=== PATIENT | female | born 1945 | race Caucasian/White ===

== ENCOUNTER 2018-05-24 21:31 | Observation (INO) | payer MEDICARE, OTHER ==
--- NOTE | 2018-05-24 21:50 | EDM.PDOC ---
ED HPI GENERAL MEDICAL PROBLEM - General Chief Complaint: Neuro Symptoms/Deficits Stated Complaint: STROKE SYSTEMS Time Seen by Provider: 05/24/18 21:50 Source of Information: Reports: Patient - History of Present Illness INITIAL COMMENTS - FREE TEXT/NARRATIVE: HISTORY AND PHYSICAL: History of present illness: [Patient presents with left facial weakness via EMS At between 7 and 9 PM tonight patient hasn't had some left facial weakness which is now resolved, in terms lasted for 30-60 minutes per on EMS arrival they did verify the symptoms however there was full resolution by the time she arrives in the ER She speaks clearly full sentences no distress no fever nausea vomiting diarrhea constipation chest pain shortness breath headache dizziness or palpitation no bowel or urine symptoms ] Review of systems: As per history of present illness and below otherwise all systems reviewed and negative. Past medical history: As per history of present illness and as reviewed below otherwise noncontributory. Surgical history: As per history of present illness and as reviewed below otherwise noncontributory. Social history: No reported history of drug or alcohol abuse. Family history: As per history of present illness and as reviewed below otherwise noncontributory. Physical exam: HEENT: Atraumatic, normocephalic, pupils reactive, negative for conjunctival pallor or scleral icterus, mucous membranes moist, throat clear, neck supple, nontender, trachea midline. Lungs: Clear to auscultation, breath sounds equal bilaterally, chest nontender. Heart: S1S2, regular, negative for clicks, rubs, or JVD. Abdomen: Soft, nondistended, nontender. Negative for masses or hepatosplenomegaly. Negative for costovertebral tenderness. Pelvis: Stable nontender. Genitourinary: Deferred. Rectal: Deferred. Extremities: Atraumatic, negative for cords or calf pain. Neurovascular unremarkable. Neuro: Awake, alert, oriented. Cranial nerves II through XII unremarkable. Cerebellum unremarkable. Motor and sensory unremarkable throughout. Exam nonfocal. Diagnostics: [CBC CMP troponin EKG Chest 1 view ] head CT no contrast Therapeutics: [ 324 mg chewable aspirin ] Impression: TIA Chronic history of baseline] Definitive disposition and diagnosis as appropriate pending reevaluation and review of above. - Related Data Allergies Allergy/AdvReac Type Severity Reaction Status Date / Time No Known Allergies Allergy Verified 05/24/18 21:40 Home Meds: Home Meds Atenolol 50 mg PO BID 05/24/18 [History] Levothyroxine [Sythroid] 100 mcg PO DAILY 05/24/18 [History] Pravastatin [Pravachol] 40 mg PO DAILY 05/24/18 [History] Ramipril [Altace] 5 mg PO BID 05/24/18 [History] amLODIPine Besylate [Norvasc] 5 mg PO DAILY 05/24/18 [History] ED ROS GENERAL - Review of Systems Review Of Systems: See Below ED EXAM, GENERAL - Physical Exam Exam: See Below Course - Vital Signs Last Recorded V/S: Last Vital Signs Temp 97.8 F 05/24/18 21:32 Pulse 96 05/24/18 21:32 Resp 22 H 05/24/18 21:32 BP 134/77 05/24/18 21:32 Pulse Ox 95 05/24/18 21:32 - Orders/Labs/Meds Orders: Active Orders 24 hr Category Date Time Status EKG Documentation Completion [RC] STAT Care 05/24/18 21:48 Active Chest 1V Frontal [CR] Stat Exams 05/24/18 21:48 Taken Head wo Cont [CT] Stat Exams 05/24/18 21:48 Taken CULTURE URINE [RM] Stat Lab 05/24/18 21:55 Received UA W/MICROSCOPIC [URIN] Stat Lab 05/24/18 21:55 Ordered Sodium Chloride 0.9% [Normal Saline] 1,000 ml Med 05/24/18 22:00 Active IV STAT Medication Orders Sodium Chloride (Normal Saline) 1,000 mls @ 125 mls/hr IV STAT MELISSA Last Admin: 05/24/18 22:09 Dose: 125 mls/hr Labs: Laboratory Tests 05/24/18 05/24/18 05/24/18 Range/Units 21:55 22:09 22:09 WBC 10.62 (4.0-11.0) K/uL RBC 4.70 (4.30-5.90) M/uL Hgb 14.7 (12.0-16.0) g/dL Hct 43.5 (36.0-46.0) % MCV 92.6 (80.0-98.0) fL MCH 31.3 (27.0-32.0) pg MCHC 33.8 (31.0-37.0) g/dL RDW Std Deviation 46.5 (28.0-62.0) fl RDW Coeff of Javed 14 (11.0-15.0) % Plt Count 205 (150-400) K/uL MPV 10.50 (7.40-12.00) fL Neut % (Auto) 78.0 (48.0-80.0) % Lymph % (Auto) 13.4 L (16.0-40.0) % [place] % (Auto) 5.3 (0.0-15.0) % Eos % (Auto) 2.7 (0.0-7.0) % Baso % (Auto) 0.6 (0.0-1.5) % Neut # (Auto) 8.3 H (1.4-5.7) K/uL Lymph # (Auto) 1.4 (0.6-2.4) K/uL [place] # (Auto) 0.6 (0.0-0.8) K/uL Eos # (Auto) 0.3 (0.0-0.7) K/uL Baso # (Auto) 0.1 (0.0-0.1) K/uL Nucleated RBC % 0.0 /100WBC Nucleated RBCs # 0 K/uL INR 1.03 Sodium (136-145) mmol/L Potassium (3.5-5.1) mmol/L Chloride (98-107) mmol/L Carbon Dioxide (21.0-32.0) mmol/L BUN (7.0-18.0) mg/dL Creatinine (0.6-1.0) mg/dL Est Cr Clr Drug Dosing mL/min Estimated GFR (MDRD) ml/min Glucose (74-106) mg/dL Calcium (8.5-10.1) mg/dL Total Bilirubin (0.2-1.0) mg/dL AST (15-37) IU/L ALT (14-63) IU/L Alkaline Phosphatase (46-116) U/L Troponin I (0.000-0.056) ng/mL Total Protein (6.4-8.2) g/dL Albumin (3.4-5.0) g/dL Globulin (2.0-3.5) g/dL Albumin/Globulin Ratio (1.3-2.8) Urine Color YELLOW Urine Appearance SLT CLOUDY Urine pH 6.0 (5.0-8.0) Ur Specific [place] 1.025 (1.001-1.035) Urine Protein NEGATIVE (NEGATIVE) mg/dL Urine Glucose (UA) NEGATIVE (NEGATIVE) mg/dL Urine Ketones TRACE H (NEGATIVE) mg/dL Urine Occult Blood TRACE-INTACT (NEGATIVE) Urine Nitrite NEGATIVE (NEGATIVE) Urine Bilirubin NEGATIVE (NEGATIVE) Urine Urobilinogen 0.2 (<2.0) EU/dL Ur Leukocyte Esterase SMALL (NEGATIVE) Urine RBC 0-3 (0-2/HPF) Urine WBC 12-15 (0-5/HPF) Ur Epithelial Cells FEW (NONE-FEW) Urine Bacteria 1+ H (NEGATIVE) 05/24/18 Range/Units 22:09 WBC (4.0-11.0) K/uL RBC (4.30-5.90) M/uL Hgb (12.0-16.0) g/dL Hct (36.0-46.0) % MCV (80.0-98.0) fL MCH (27.0-32.0) pg MCHC (31.0-37.0) g/dL RDW Std Deviation (28.0-62.0) fl RDW Coeff of Javed (11.0-15.0) % Plt Count (150-400) K/uL MPV (7.40-12.00) fL Neut % (Auto) (48.0-80.0) % Lymph % (Auto) (16.0-40.0) % [place] % (Auto) (0.0-15.0) % Eos % (Auto) (0.0-7.0) % Baso % (Auto) (0.0-1.5) % Neut # (Auto) (1.4-5.7) K/uL Lymph # (Auto) (0.6-2.4) K/uL [place] # (Auto) (0.0-0.8) K/uL Eos # (Auto) (0.0-0.7) K/uL Baso # (Auto) (0.0-0.1) K/uL Nucleated RBC % /100WBC Nucleated RBCs # K/uL INR Sodium 139 (136-145) mmol/L Potassium 4.2 (3.5-5.1) mmol/L Chloride 105 (98-107) mmol/L Carbon Dioxide 23.4 (21.0-32.0) mmol/L BUN 22 H (7.0-18.0) mg/dL Creatinine 1.0 (0.6-1.0) mg/dL Est Cr Clr Drug Dosing 42.62 mL/min Estimated GFR (MDRD) 54.2 ml/min Glucose 139 H (74-106) mg/dL Calcium 9.0 (8.5-10.1) mg/dL Total Bilirubin 0.7 (0.2-1.0) mg/dL AST 18 (15-37) IU/L ALT 23 (14-63) IU/L Alkaline Phosphatase 93 (46-116) U/L Troponin I < 0.050 (0.000-0.056) ng/mL Total Protein 7.7 (6.4-8.2) g/dL Albumin 3.8 (3.4-5.0) g/dL Globulin 3.9 H (2.0-3.5) g/dL Albumin/Globulin Ratio 1.0 L (1.3-2.8) Urine Color Urine Appearance Urine pH (5.0-8.0) Ur Specific [place] (1.001-1.035) Urine Protein (NEGATIVE) mg/dL Urine Glucose (UA) (NEGATIVE) mg/dL Urine Ketones (NEGATIVE) mg/dL Urine Occult Blood (NEGATIVE) Urine Nitrite (NEGATIVE) Urine Bilirubin (NEGATIVE) Urine Urobilinogen (<2.0) EU/dL Ur Leukocyte Esterase (NEGATIVE) Urine RBC (0-2/HPF) Urine WBC (0-5/HPF) Ur Epithelial Cells (NONE-FEW) Urine Bacteria (NEGATIVE) Meds: Medications Generic Name Dose Route Start Last Admin Trade Name Freq PRN Reason Stop Dose Admin Sodium Chloride 1,000 mls @ 125 mls/hr 05/24/18 22:00 05/24/18 22:09 Normal Saline IV 125 mls/hr STAT MELISSA Administration Discontinued Medications Generic Name Dose Route Start Last Admin Trade Name Freq PRN Reason Stop Dose Admin Aspirin 324 mg 05/24/18 22:50 Aspirin PO 05/24/18 22:51 ONETIME ONE Departure - Departure Time of Disposition: 23:22 Disposition: Refer to Observation Condition: Fair Clinical Impression: TIA (transient ischemic attack) - Discharge Information Forms: ED Department Discharge - My Orders Last 24 Hours: My Active Orders 05/24/18 21:48 EKG Documentation Completion [RC] STAT Chest 1V Frontal [CR] Stat Head wo Cont [CT] Stat 05/24/18 21:55 CULTURE URINE [RM] Stat UA W/MICROSCOPIC [URIN] Stat 05/24/18 22:00 Sodium Chloride 0.9% [Normal Saline] 1,000 ml IV STAT - Assessment/Plan Last 24 Hours: My Active Orders 05/24/18 21:48 EKG Documentation Completion [RC] STAT Chest 1V Frontal [CR] Stat Head wo Cont [CT] Stat 05/24/18 21:55 CULTURE URINE [RM] Stat UA W/MICROSCOPIC [URIN] Stat 05/24/18 22:00 Sodium Chloride 0.9% [Normal Saline] 1,000 ml IV STAT
[2018-05-24] MEDS ORDERED: Sodium Chloride 0.9% 1,000 ML IV SCH (22:00)
[2018-05-24 22:44] LABS: CHLORIDE,CL 105 mmol/L (98-107); SODIUM,NA 139 mmol/L (136-145)
[2018-05-24] MEDS ORDERED: Aspirin 81 MG Tab.Chew PO ONE (22:50)
[2018-05-25] MEDS: Pravastatin 40 MG Tab PO SCH ×2 (00:52→20:07)
[2018-05-25] MEDS: Levothyroxine 100 MCG Tab PO SCH (06:36)
--- NOTE | 2018-05-25 08:26 | PCM.HP ---
H&P History of Present Illness - General Date of Service: 05/25/18 Admit Problem/Dx: Admission Diagnosis/Problem Admission Diagnosis/Problem TIA, Transient ischemic attack - History of Present Illness Initial Comments - Free Text/Narative: The patient is a 72-year-old female who noticed left-sided facial weakness and inability to speak at home that lasted 30-60 minutes. She was brought into the ER by the time she arrived, her symptoms had resolved. She denies any additional weakness in the extremities, any vision changes, any headache. She reports she's never had any symptoms like this before. She does have a history of hyperlipidemia and hypertension. Workup in the ER included, CBC, CMP, troponin that was negative. They also did an CXR that showed cardiomegaly and atelectasis in the LLL and a CT head that showed no acute infarct, no intracranial hemorrhage, or mass effect. An EKG did show that she was in A. fib. She remained in A. fib all night on telemetry. When speaking to the patient, she did not know she had A.Fib. But she notes that her primary care doctor did tell her she skips a beat occasionally. She is not currently on anticoagulation. She has no history of GI bleed or falls, if she were to be started on anticoagulation. Currently, she is not having any neurological deficits and feels better. She denies any chest pain, shortness of breath, abdominal pain. She's been eating, drinking and going to the bathroom without difficulty. - Related Data Allergies/Adverse Reactions: Allergies Allergy/AdvReac Type Severity Reaction Status Date / Time No Known Allergies Allergy Verified 05/24/18 21:40 Home Medications: Home Meds Atenolol 50 mg PO BID 05/24/18 [History] Levothyroxine [Sythroid] 100 mcg PO ACBREAKFAST 05/24/18 [History] Pravastatin [Pravachol] 40 mg PO BEDTIME 05/24/18 [History] Ramipril [Altace] 5 mg PO BID 05/24/18 [History] amLODIPine Besylate [Norvasc] 5 mg PO DAILY 05/24/18 [History] Past Medical History HEENT History: Reports: Other (See Below) Other HEENT History: wears glasses Cardiovascular History: Reports: Afib, High Cholesterol, Hypertension Respiratory History: Reports: None Gastrointestinal History: Reports: Bowel Obstruction Genitourinary History: Reports: None Other Musculoskeletal History: broken pelvis Neurological History: Reports: None Psychiatric History: Reports: None Endocrine/Metabolic History: Reports: Hypothyroidism Oncologic (Cancer) History: Reports: Breast - Infectious Disease History Infectious Disease History: Reports: Chicken Pox, Mumps - Past Surgical History HEENT Surgical History: Reports: None Cardiovascular Surgical History: Reports: None Female Surgical History: Reports: Hysterectomy, Other (See Below) Other Female Surgeries/Procedures: Bilateral Mastectomy Endocrine Surgical History: Reports: None Musculoskeletal Surgical History: Reports: Other (See Below) Other Musculoskeletal Surgeries/Procedures:: left arm Oncologic Surgical History: Reports: Mastectomy Social & Family History - Family History Family Medical History: Noncontributory - Tobacco Use Smoking Status *Q: Never Smoker Second Hand Smoke Exposure: Yes - Caffeine Use Caffeine Use: Reports: Soda - Recreational Drug Use Recreational Drug Use: No H&P Review of Systems - Review of Systems: Review Of Systems: See Below General: Reports: No Symptoms HEENT: Reports: No Symptoms Pulmonary: Reports: No Symptoms Cardiovascular: Reports: No Symptoms Gastrointestinal: Reports: No Symptoms Genitourinary: Reports: No Symptoms Musculoskeletal: Reports: No Symptoms Skin: Reports: No Symptoms Psychiatric: Reports: No Symptoms Neurological: Reports: No Symptoms Hematologic/Lymphatic: Reports: No Symptoms Immunologic: Reports: No Symptoms Exam - Exam Exam: See Below - Vital Signs Vital Signs: Last Vital Signs Temp 97.5 F 05/25/18 08:00 Pulse 93 05/25/18 08:00 Resp 18 05/25/18 08:00 BP 158/78 H 05/25/18 08:00 Pulse Ox 93 L 05/25/18 08:00 Weight: 95.7 kg - Exam General: Alert, Oriented, Cooperative HEENT: EOMI, Mucosa Moist & [place], Posterior Pharynx Clear, Pupils Equal, Pupils Reactive Neck: Supple Lungs: Clear to Auscultation, Normal Respiratory Effort Cardiovascular: Irregular Rhythm (A.Fib) GI/Abdominal Exam: Normal Bowel Sounds, Soft, Non-Tender, No Distention Skin: Warm, Dry Neurological: Strength Equal Bilateral, Normal Speech, Sensation Intact Neuro Extensive - Mental Status: Alert, Oriented x3, Normal Mood/Affect, Normal Cognition, Memory Intact Neuro Extensive - Motor, Sensory, Reflexes: CN II-XII Intact. No: Tongue Deviation (L), Tongue Deviation (R), Dysarthria Psychiatric: Alert, Normal Affect, Normal Mood - Patient Data Lab Results Last 24 hrs: Laboratory Results - last 24 hr 05/24/18 05/24/18 05/24/18 Range/Units 21:55 22:09 22:09 WBC 10.62 (4.0-11.0) K/uL RBC 4.70 (4.30-5.90) M/uL Hgb 14.7 (12.0-16.0) g/dL Hct 43.5 (36.0-46.0) % MCV 92.6 (80.0-98.0) fL MCH 31.3 (27.0-32.0) pg MCHC 33.8 (31.0-37.0) g/dL RDW Std Deviation 46.5 (28.0-62.0) fl RDW Coeff of Javed 14 (11.0-15.0) % Plt Count 205 (150-400) K/uL MPV 10.50 (7.40-12.00) fL Neut % (Auto) 78.0 (48.0-80.0) % Lymph % (Auto) 13.4 L (16.0-40.0) % [place] % (Auto) 5.3 (0.0-15.0) % Eos % (Auto) 2.7 (0.0-7.0) % Baso % (Auto) 0.6 (0.0-1.5) % Neut # (Auto) 8.3 H (1.4-5.7) K/uL Lymph # (Auto) 1.4 (0.6-2.4) K/uL [place] # (Auto) 0.6 (0.0-0.8) K/uL Eos # (Auto) 0.3 (0.0-0.7) K/uL Baso # (Auto) 0.1 (0.0-0.1) K/uL Nucleated RBC % 0.0 /100WBC Nucleated RBCs # 0 K/uL INR 1.03 Sodium (136-145) mmol/L Potassium (3.5-5.1) mmol/L Chloride (98-107) mmol/L Carbon Dioxide (21.0-32.0) mmol/L BUN (7.0-18.0) mg/dL Creatinine (0.6-1.0) mg/dL Est Cr Clr Drug Dosing mL/min Estimated GFR (MDRD) ml/min Glucose (74-106) mg/dL Calcium (8.5-10.1) mg/dL Total Bilirubin (0.2-1.0) mg/dL AST (15-37) IU/L ALT (14-63) IU/L Alkaline Phosphatase (46-116) U/L Troponin I (0.000-0.056) ng/mL Total Protein (6.4-8.2) g/dL Albumin (3.4-5.0) g/dL Globulin (2.0-3.5) g/dL Albumin/Globulin Ratio (1.3-2.8) Triglycerides (0-200) mg/dL Cholesterol (50-200) mg/dL LDL Cholesterol, Calc (60-180) mg/dL VLDL Cholesterol (5-55) mg/dL HDL Cholesterol (40-60) mg/dL Cholesterol/HDL Ratio (3.3-6.0) Urine Color YELLOW Urine Appearance SLT CLOUDY Urine pH 6.0 (5.0-8.0) Ur Specific [place] 1.025 (1.001-1.035) Urine Protein NEGATIVE (NEGATIVE) mg/dL Urine Glucose (UA) NEGATIVE (NEGATIVE) mg/dL Urine Ketones TRACE H (NEGATIVE) mg/dL Urine Occult Blood TRACE-INTACT (NEGATIVE) Urine Nitrite NEGATIVE (NEGATIVE) Urine Bilirubin NEGATIVE (NEGATIVE) Urine Urobilinogen 0.2 (<2.0) EU/dL Ur Leukocyte Esterase SMALL (NEGATIVE) Urine RBC 0-3 (0-2/HPF) Urine WBC 12-15 (0-5/HPF) Ur Epithelial Cells FEW (NONE-FEW) Urine Bacteria 1+ H (NEGATIVE) 05/24/18 05/25/18 Range/Units 22:09 05:49 WBC (4.0-11.0) K/uL RBC (4.30-5.90) M/uL Hgb (12.0-16.0) g/dL Hct (36.0-46.0) % MCV (80.0-98.0) fL MCH (27.0-32.0) pg MCHC (31.0-37.0) g/dL RDW Std Deviation (28.0-62.0) fl RDW Coeff of Javed (11.0-15.0) % Plt Count (150-400) K/uL MPV (7.40-12.00) fL Neut % (Auto) (48.0-80.0) % Lymph % (Auto) (16.0-40.0) % [place] % (Auto) (0.0-15.0) % Eos % (Auto) (0.0-7.0) % Baso % (Auto) (0.0-1.5) % Neut # (Auto) (1.4-5.7) K/uL Lymph # (Auto) (0.6-2.4) K/uL [place] # (Auto) (0.0-0.8) K/uL Eos # (Auto) (0.0-0.7) K/uL Baso # (Auto) (0.0-0.1) K/uL Nucleated RBC % /100WBC Nucleated RBCs # K/uL INR Sodium 139 (136-145) mmol/L Potassium 4.2 (3.5-5.1) mmol/L Chloride 105 (98-107) mmol/L Carbon Dioxide 23.4 (21.0-32.0) mmol/L BUN 22 H (7.0-18.0) mg/dL Creatinine 1.0 (0.6-1.0) mg/dL Est Cr Clr Drug Dosing 42.62 mL/min Estimated GFR (MDRD) 54.2 ml/min Glucose 139 H (74-106) mg/dL Calcium 9.0 (8.5-10.1) mg/dL Total Bilirubin 0.7 (0.2-1.0) mg/dL AST 18 (15-37) IU/L ALT 23 (14-63) IU/L Alkaline Phosphatase 93 (46-116) U/L Troponin I < 0.050 (0.000-0.056) ng/mL Total Protein 7.7 (6.4-8.2) g/dL Albumin 3.8 (3.4-5.0) g/dL Globulin 3.9 H (2.0-3.5) g/dL Albumin/Globulin Ratio 1.0 L (1.3-2.8) Triglycerides 85 (0-200) mg/dL Cholesterol 152 (50-200) mg/dL LDL Cholesterol, Calc 74 (60-180) mg/dL VLDL Cholesterol 17 (5-55) mg/dL HDL Cholesterol 61 H (40-60) mg/dL Cholesterol/HDL Ratio 2.5 L (3.3-6.0) Urine Color Urine Appearance Urine pH (5.0-8.0) Ur Specific [place] (1.001-1.035) Urine Protein (NEGATIVE) mg/dL Urine Glucose (UA) (NEGATIVE) mg/dL Urine Ketones (NEGATIVE) mg/dL Urine Occult Blood (NEGATIVE) Urine Nitrite (NEGATIVE) Urine Bilirubin (NEGATIVE) Urine Urobilinogen (<2.0) EU/dL Ur Leukocyte Esterase (NEGATIVE) Urine RBC (0-2/HPF) Urine WBC (0-5/HPF) Ur Epithelial Cells (NONE-FEW) Urine Bacteria (NEGATIVE) Result Diagrams: 05/24/18 22:09 05/24/18 22:09 Problem List Initiated/Reviewed/Updated: Yes Orders Last 24hrs: Active Orders 24 hr Category Date Time Status Admission Status [Patient Status] [ADT] Stat ADT 05/24/18 23:23 Active EKG Documentation Completion [RC] STAT Care 05/24/18 21:48 Active Telemetry Monitoring [Cardiac Monitoring] [RC] Q8H Care 05/25/18 00:01 Active Regular Diet [DIET] Diet 05/25/18 Breakfast Active Chest 1V Frontal [CR] Stat Exams 05/24/18 21:48 Taken Head wo Cont [CT] Stat Exams 05/24/18 21:48 Taken CULTURE URINE [RM] Stat Lab 05/24/18 21:55 Ordered UA W/MICROSCOPIC [URIN] Stat Lab 05/24/18 21:55 Ordered Atenolol [Tenormin] Med 05/25/18 09:00 Active 50 mg PO BID Levothyroxine [Synthroid] Med 05/25/18 07:30 Active 100 mcg PO ACBREAKFAST Pravastatin [Pravachol] Med 05/25/18 00:17 Active 40 mg PO BEDTIME Ramipril Med 05/25/18 09:00 Ordered 5 mg PO BID amLODIPine [Norvasc] Med 05/25/18 09:00 Active 5 mg PO DAILY Medication Orders Amlodipine Besylate (Norvasc) 5 mg PO DAILY MELISSA Atenolol (Tenormin) 50 mg PO BID MELISSA Levothyroxine Sodium (Synthroid) 100 mcg PO ACBREAKFAST COUNT INCLUDES THE [facility] Last Admin: 05/25/18 06:36 Dose: 100 mcg Non-Formulary Medication (Ramipril) 5 mg PO BID COUNT INCLUDES THE [facility] Pravastatin Sodium (Pravachol) 40 mg PO BEDTIME COUNT INCLUDES THE [facility] Last Admin: 05/25/18 00:52 Dose: 40 mg Assessment/Plan Comment:: 1. Admit for observation 2. Code Status- Full 3. Vitals Per routine 4. I/Os per routine 5. Cardiac diet 6. Left sided facial weakness likely secondary to TIA- resolved -Plan- CT was negative and symptoms had resolved, continue to monitor for neurological deficits. If no further issues, discharge in morning. 7. Afib- Plan- Rate controlled on home medications, not anticoagulated. Patient denies any history of GI bleed or falls. Risks/Benefits discussed with patient and family about anticoagulation. Risks/Benefits discussed between warfarin and Eliquis. Patient is agreeable to start anticoagulation with Eliquis. Patient needs an echocardiogram done but that will need to be as an outpatient because service is not available over the weekend. 8. PMH of HTN, Hyperlipidemia- continue home meds.
[2018-05-25] MEDS ORDERED: Enoxaparin 40 MG/0.4 ML Syringe SUBCUT SCH (08:45)
[2018-05-25] MEDS: amLODIPine 5 MG Tab PO SCH (08:59)
[2018-05-25] MEDS: Atenolol 50 MG Tab PO SCH ×3 (08:59→20:10)
[2018-05-25] MEDS ORDERED: Apixaban 5 MG Tab PO SCH (10:30)
[2018-05-25] MEDS: Apixaban 5 MG Tab PO SCH (20:07)
[2018-05-26 06:38] LABS: CHLORIDE,CL 106 mmol/L (98-107); SODIUM,NA 140 mmol/L (136-145)
[2018-05-26] MEDS: Levothyroxine 100 MCG Tab PO SCH (07:01)
[2018-05-26] MEDS: Apixaban 5 MG Tab PO SCH (08:38)
[2018-05-26] MEDS: Atenolol 50 MG Tab PO SCH (08:39)
[2018-05-26] MEDS: amLODIPine 5 MG Tab PO SCH (08:39)
--- NOTE | 2018-05-26 12:36 | PCM.DCSUM1 ---
Discharge Summary - Hospital Course HPI Initial Comments: Discharge Summary Date of admission: 05/25/18 Date of discharge: 05/26/18 Admitting diagnosis: #1. Left-sided facial weakness ith symptoms resolved likely secondary to TIA #2. new onset atrial fibrillation #3. Past medical history of hypertension, hyperlipidemia #4. #5. Discharge diagnoses: #1. TIA #2. new onset atririllation on anticoagulation #3. Past medical history of hypertension and hyperlipidemia #4. #5. Consultations: None Procedures: None Hospitalization course: Patient was stable throughout her stay, she did not have any further neurological deficits throughout her entire hospital stay. Patient was started on Eliquis or her new onset atrial fibrillation.On physical examination patient does appear to have a systolic murmur likely aortic stenosis , atient is going to require an outpatient echocardiogram done by her PCP for proper evaluation of her new onset atrial fibrillation along with her aortic stenosis. Patient will also follow-up with neurology in an outpatient setting. Patient has been stable throughout her stay and would like to be discharged home. patient was sent home on continuation of her home medication, long with maximization of her statins to 80 mg daily for anti-inflammatory effect due to her TIA symptoms, as well as anticoagulation with Eliquis. Disposition on discharge:Home Condition on discharge: Stable - Discharge Data Discharge Date: 05/26/18 Discharge Disposition: Home, Self-Care 01 Condition: Good - Discharge Diagnosis/Problem(s) (1) TIA (transient ischemic attack) SNOMED Code(s): 131819300 ICD Code: G45.9 - TRANSIENT CEREBRAL ISCHEMIC ATTACK, UNSPECIFIED Status: Acute Current Visit: Yes (2) A-fib SNOMED Code(s): 65839661 ICD Code: I48.91 - UNSPECIFIED ATRIAL FIBRILLATION Status: Acute Current Visit: Yes - Patient Instructions Diet: Regular Diet as Tolerated Activity: As Tolerated Driving: Do Not Drive Showering/Bathing: May Shower Notify Provider of: Fever, Increased Pain, Drainage, Nausea and/or Vomiting - Discharge Plan Prescriptions/Med Rec: Apixaban [Eliquis] 5 mg PO BID 30 Days #60 tablet Pravastatin [Pravachol] 40 mg PO BID 30 Days #60 tablet Home Medications: Home Meds Atenolol 50 mg PO BID 05/24/18 [History] Levothyroxine [Synthroid] 100 mcg PO ACBREAKFAST 05/24/18 [History] Ramipril [Altace] 5 mg PO BID 05/24/18 [History] amLODIPine Besylate [Norvasc] 5 mg PO DAILY 05/24/18 [History] Apixaban [Eliquis] 5 mg PO BID 30 Days #60 tablet 05/26/18 [Rx] Pravastatin [Pravachol] 40 mg PO BID 30 Days #60 tablet 05/26/18 [Rx] Patient Handouts: Transient Ischemic Attack, [id number] Referrals: Gela Whittaker NP [Ordering Only Provider] - Zulema Dutta MD [Physician] - (Please call on Sunday for follow-up appointment in 1 week.) - Discharge Summary/Plan Comment DC Time >30 min.: No - Patient Data Vitals - Most Recent: Last Vital Signs Temp 37.1 C 05/26/18 08:00 Pulse 96 05/26/18 08:00 Resp 16 05/26/18 08:00 BP 136/78 05/26/18 08:00 Pulse Ox 94 L 05/26/18 08:00 Weight - Most Recent: 95.7 kg I&O - Last 24 hours: Intake & Output 05/25/18 05/26/18 05/26/18 22:59 06:59 14:59 Intake Total 520 340 Output Total 980 600 Balance -460 -260 Lab Results - Last 24 hrs: Laboratory Results - last 24 hr 05/26/18 05/26/18 Range/Units 06:11 06:11 WBC 10.31 (4.0-11.0) K/uL RBC 4.58 (4.30-5.90) M/uL Hgb 13.8 (12.0-16.0) g/dL Hct 42.1 (36.0-46.0) % MCV 91.9 (80.0-98.0) fL MCH 30.1 (27.0-32.0) pg MCHC 32.8 (31.0-37.0) g/dL RDW Std Deviation 45.6 (28.0-62.0) fl RDW Coeff of Javed 14 (11.0-15.0) % Plt Count 181 (150-400) K/uL MPV 10.90 (7.40-12.00) fL Neut % (Auto) 76.1 (48.0-80.0) % Lymph % (Auto) 14.2 L (16.0-40.0) % Mckinley % (Auto) 7.9 (0.0-15.0) % Eos % (Auto) 1.5 (0.0-7.0) % Baso % (Auto) 0.3 (0.0-1.5) % Neut # (Auto) 7.9 H (1.4-5.7) K/uL Lymph # (Auto) 1.5 (0.6-2.4) K/uL Mckinley # (Auto) 0.8 (0.0-0.8) K/uL Eos # (Auto) 0.2 (0.0-0.7) K/uL Baso # (Auto) 0.0 (0.0-0.1) K/uL Nucleated RBC % 0.0 /100WBC Nucleated RBCs # 0 K/uL Sodium 140 (136-145) mmol/L Potassium 3.8 (3.5-5.1) mmol/L Chloride 106 (98-107) mmol/L Carbon Dioxide 22.9 (21.0-32.0) mmol/L BUN 12 (7.0-18.0) mg/dL Creatinine 0.9 (0.6-1.0) mg/dL Est Cr Clr Drug Dosing 49.35 mL/min Estimated GFR (MDRD) > 60.0 ml/min Glucose 106 (74-106) mg/dL Calcium 9.2 (8.5-10.1) mg/dL MARINA Results - Last 24 hrs: Microbiology 05/24/18 21:55 Urine Culture - Final Urine, Clean Catch MIXED LONG >100,000 CFU/ML Med Orders - Current: Current Medications Amlodipine Besylate (Norvasc) 5 mg PO DAILY [facility] Last Admin: 05/26/18 08:39 Dose: Not Given Apixaban (Eliquis) 5 mg PO BID [facility] Last Admin: 05/26/18 08:38 Dose: 5 mg Atenolol (Tenormin) 50 mg PO BID [facility] Last Admin: 05/26/18 08:39 Dose: Not Given Levothyroxine Sodium (Synthroid) 100 mcg PO ACBREAKFAST [facility] Last Admin: 05/26/18 07:01 Dose: Not Given Pravastatin Sodium (Pravachol) 40 mg PO BEDTIME [facility] Last Admin: 05/25/18 20:07 Dose: 40 mg Ramipril (Altace) 5 mg PO BID [facility] Last Admin: 05/26/18 08:39 Dose: Not Given Discontinued Medications Aspirin (Aspirin) 324 mg PO ONETIME ONE Stop: 05/24/18 22:51 Last Admin: 05/25/18 00:00 Dose: 324 mg Enoxaparin Sodium (Lovenox) 40 mg SUBCUT Q24H [facility] Last Admin: 05/25/18 09:00 Dose: 40 mg Sodium Chloride (Normal Saline) 1,000 mls @ 125 mls/hr IV STAT MELISSA Last Admin: 05/24/18 22:09 Dose: 125 mls/hr
--- NOTE | 2018-05-27 15:21 | CR ---
EXAM DATE: 05/24/18 PATIENT'S AGE: 72 Patient: FARHANA LESTER Facility: [place], [place] Site . Site : 1945 Study: XRay Chest [id number] 10:38:27 PM Ordering Physician: Doctor Ross Final Report: INDICATION: Pain, shortness of breath. COMPARISON: None. FINDINGS: The bones are diffusely demineralized. Cardiac silhouette is mildly enlarged. The pulmonary vasculature is normal. The lungs are free of focal consolidations. Linear platelike atelectasis in the left lower lung. IMPRESSION: 1. Minimal linear platelike atelectasis left lower lung. 2. Cardiomegaly. Dictated by Kady Caldwell MD @ May 24 2018 10:41PM (Electronic Signature) Report Signed by Proxy. [facility]
--- NOTE | 2018-05-27 15:21 | CT ---
EXAM DATE: 05/24/18 PATIENT'S AGE: 72 Patient: FARHANA LESTER Facility: [place], [place] Site . Site : 1945 Study: CT Head [id number]/10/2018 10:31:21 PM Ordering Physician: Doctor Ross Final Report: INDICATION: confusion, facial droop TECHNIQUE: CT Head without i.v. contrast. CONTRAST: None COMPARISON: None FINDINGS: CSF space: Unremarkable for age. Brain: No evidence of mass, acute infarction or hemorrhage is seen. No mass- effect or midline shift is seen. Mild diffuse cortical atrophy is noted. The brain parenchyma is otherwise normal in appearance with preservation of the love -white matter junction. Calvarium: The visualized paranasal sinuses are well aerated. The mastoid air cells are clear. The visualized orbits are grossly unremarkable. The calvarium is unremarkable in appearance with no fractures identified. IMPRESSION: 1. No evidence of acute infarction, intracranial hemorrhage, or mass-effect seen. Please note that all CT scans at this facility use dose modulation, iterative reconstruction, and/or weight-based dosing when appropriate to reduce radiation dose to as low as reasonably achievable. Dictated by: Zeke Worrell MD @ 05/24/2018 22:44:11 (Electronic Signature) Report Signed by Proxy. [facility]
== END 2018-05-26 13:58 | disposition home or self-care (01) ==
LOC: MW.ED 21:31 → MW.MS 23:23 → UNDOADMOB 23:42 → MW.MS 23:42
PROVIDERS: ADMIT Internal Medicine; ATTEND Internal Medicine
DX: G45.9 Transient cerebral ischemic attack, unspecified (principal); I48.91 Unspecified atrial fibrillation; I10 Essential (primary) hypertension; E78.5 Hyperlipidemia, unspecified; E03.9 Hypothyroidism, unspecified; Z79.899 Other long term (current) drug therapy
CPT/HCPCS: 36415; 70450; 71045; 80048; 80053; 80061; 81001; 84484; 85025; 85610; 87086; 93005; 96360; 96361; 96372; 99285; A9270; G0378; J1650; J7040